=== PATIENT | female | born 1985 | race Caucasian/White ===

== ENCOUNTER 2017-01-07 05:04 | Inpatient (IN) | payer BC, OTHER ==
[2017-01-07] MEDS ORDERED: Butorphanol 1 MG/ML SDV IVPUSH PRN (05:17)
[2017-01-07] MEDS ORDERED: Carboprost Tromethamine 250 MCG/1 ML Amp IM PRN (05:17)
[2017-01-07] MEDS ORDERED: Misoprostol 200 MCG Tab PO PRN (05:17)
[2017-01-07] MEDS ORDERED: Lidocaine 1% 50 ML MDV INJECT PRN (05:17)
[2017-01-07] MEDS ORDERED: Sodium Chloride 0.9% 2.5 ML Syringe FLUSH PRN (05:17)
[2017-01-07] MEDS ORDERED: Sodium Chloride 0.9% 10 ML Syringe FLUSH PRN (05:17)
[2017-01-07] MEDS ORDERED: Nalbuphine 10 MG/1 ML Vial IVPUSH PRN (05:17)
[2017-01-07] MEDS ORDERED: Methylergonovine 0.2 MG/1 ML Amp IM PRN (05:17)
[2017-01-07] MEDS ORDERED: Misoprostol 25 MCG (1/4 of 100 MCG) Tab VAG PRN (05:17)
[2017-01-07] MEDS ORDERED: Terbutaline 1 MG/ML SDV SUBCUT PRN (05:17)
[2017-01-07] MEDS ORDERED: Water For Irrigation,Sterile 1,000 ML Container IRR PRN (05:17)
[2017-01-07] MEDS ORDERED: Misoprostol 25 MCG (1/4 of 100 MCG) Tab VAG SCH (05:30)
[2017-01-07] MEDS ORDERED: Oxytocin/Lactated Ringers 30 UNIT/500 ML BAG IV SCH ×2 (05:30)
[2017-01-07] MEDS: Lactated Ringers 1,000 ML IV SCH ×4 (05:39→11:14)
--- NOTE | 2017-01-07 10:03 | PCM.PREANE ---
Preanesthetic Assessment - Procedure Proposed Procedure: Continuous labor epidural for scheduled elective induction - Anesthesia/Transfusion/Family Hx Anesthesia History: Prior Anesthesia Without Reaction Other Type of Anesthesia Reaction Comment: Denies any known problems/past, My Grandfather required smaller amnts Family History of Anesthesia Reaction: No Transfusion History: No Prior Transfusion(s) - Review of Systems General: No Symptoms Pulmonary: No Symptoms Cardiovascular: No Symptoms Gastrointestinal: No symptoms Neurological: No Symptoms Other: Reports: None - Physical Assessment NPO Status Date: 01/07/17 NPO Status Time: 11:23 (cl liquids) Height: 1.63 m Weight: 63.2 kg ASA Class: 2 Mental Status: Alert & Oriented x3 Airway Class: Mallampati = 2 Dentition: Reports: Normal Dentition Thyro-Mental Finger Breadths: 3 Mouth Opening Finger Breadths: 3 ROM/Head Extension: Full Lungs: Clear to auscultation, Normal respiratory effort Cardiovascular: Regular Rate, Regular Rhythm, Murmurs (has longstanding history of asymptomatic murmur) - Lab Values: Laboratory Last Values WBC 14.36 K/uL (4.0-11.0) H 01/07/17 05:40 RBC 3.68 M/uL (4.30-5.90) L 01/07/17 05:40 Hgb 10.2 g/dL (12.0-16.0) L 01/07/17 05:40 Hct 32.4 % (36.0-46.0) L 01/07/17 05:40 MCV 88.0 fL (80.0-98.0) 01/07/17 05:40 MCH 27.7 pg (27.0-32.0) 01/07/17 05:40 MCHC 31.5 g/dL (31.0-37.0) 01/07/17 05:40 RDW Std Deviation 45.7 fl (28.0-62.0) 01/07/17 05:40 RDW Coeff of Ermias 14 % (11.0-15.0) 01/07/17 05:40 Plt Count 306 K/uL (150-400) 01/07/17 05:40 MPV 10.10 fL (7.40-12.00) 01/07/17 05:40 Nucleated RBC % 0.0 /100WBC 01/07/17 05:40 Nucleated RBCs # 0 K/uL 01/07/17 05:40 Blood Type AB POSITIVE 01/07/17 05:40 Antibody Screen NEGATIVE 01/07/17 05:40 - Allergies Allergies/Adverse Reactions: Allergies Allergy/AdvReac Type Severity Reaction Status Date / Time acetaminophen [From Percocet] Allergy Vomiting Verified 04/13/14 14:32 caffeine Allergy Headache Verified 04/13/14 14:32 hydrocodone bitartrate Allergy Vomiting Verified 04/13/14 14:32 [From Vicodin] latex Allergy Swelling Verified 04/13/14 14:32 oxycodone HCl [From Percocet] Allergy Vomiting Verified 04/13/14 14:32 - Blood Blood Available: Yes Product(s) Available: PRBC - Acknowledgements Anesthesia Type Planned: Epidural Pt an Appropriate Candidate for the Planned Anesthesia: Yes Alternatives and Risks of Anesthesia Discussed w Pt/Guardian: Yes Pt/Guardian Understands and Agrees with Anesthesia Plan: Yes PreAnesthesia Questionnaire Cardiovascular History: Reports: Heart murmur (longstanding asymptomatic history of heart murmur) 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 - SUBSTANCE USE Smoking Status *Q: Former Smoker Tobacco Use Within Last Twelve Months: No Second Hand Smoke Exposure: No Days Per Week of Alcohol Use: 0 Number of Drinks Per Day: 2 Total Drinks Per Week: 0 Recreational Drug Use History: No - HOME MEDS Home Medications: Home Meds . [No Known Home Meds] 03/17/16 [History] - CURRENT (IN HOUSE) MEDS Current Meds: Current Medications Butorphanol Tartrate (Stadol) 1 mg IVPUSH Q1H PRN PRN Reason: Pain Carboprost Tromethamine (Hemabate Ds) 250 mcg IM ASDIRECTED PRN PRN Reason: Post Hemorrhage Lactated Ringer's (Ringers, Lactated) 1,000 mls @ 150 mls/hr IV ASDIRECTED ROMAN Last Admin: 01/07/17 08:49 Dose: 150 mls/hr Oxytocin/Lactated Ringer's (Pitocin In Lr 30 Units/500 Ml) 30 unit in 500 mls @ 2 mls/hr IV TITRATE ROMAN; 2 MUNITS/MIN PRN Reason: Protocol Last Titration: 01/07/17 09:53 Dose: 10 munits/min, 10 mls/hr Lidocaine HCl (Xylocaine 1%) 50 ml INJECT .ONCE PRN PRN Reason: Laceration repair Methylergonovine Maleate (Methergine) 0.2 mg IM ASDIRECTED PRN PRN Reason: Post Hemorrhage Misoprostol (Cytotec) 200 mcg PO .ONCE PRN PRN Reason: Post Hemorrhage Misoprostol (Cytotec) 25 mcg VAG .ONCE ROMAN Misoprostol (Cytotec) 25 mcg VAG Q4H PRN PRN Reason: Cervical Ripening Stop: 01/08/17 09:18 Sodium Chloride (Saline Flush) 10 ml FLUSH ASDIRECTED PRN PRN Reason: Keep Vein Open Sodium Chloride (Saline Flush) 2.5 ml FLUSH ASDIRECTED PRN PRN Reason: Keep Vein Open Sterile Water (Sterile Water For Irrigation) 1,000 ml IRR ASDIRECTED PRN PRN Reason: delivery Terbutaline Sulfate (Brethine) 0.25 mg SUBCUT ASDIRECTED PRN PRN Reason: Tacysystole Discontinued Medications Oxytocin/Lactated Ringer's (Pitocin In Lr 30 Units/500 Ml) 30 unit in 500 mls @ 999 mls/hr IV TITRATE ROMAN; 999 MUNITS/MIN PRN Reason: Protocol Stop: 01/07/17 06:01 Nalbuphine HCl (Nubain) 10 mg IVPUSH Q1H PRN PRN Reason: Pain (severe 7-10) Stop: 01/07/17 07:18 Preanesthetic Assessment - ANESTHESIA/TRANSFUSION/FAMILY HX Anesthesia/Transfusion History: No Prior Transfusion(s), Prior Anesthesia Other Type of Anesthesia Reaction Comment: Denies any known problems/past, My Grandfather required smaller amnts Family History of Anesthesia Reaction: Yes Other Intubation History Comment: No known problems - PHYSICAL ASSESSMENT Height: 1.63 m Weight: 63.2 kg - LAB Values: Laboratory Last Values WBC 14.36 K/uL (4.0-11.0) H 01/07/17 05:40 RBC 3.68 M/uL (4.30-5.90) L 01/07/17 05:40 Hgb 10.2 g/dL (12.0-16.0) L 01/07/17 05:40 Hct 32.4 % (36.0-46.0) L 01/07/17 05:40 MCV 88.0 fL (80.0-98.0) 01/07/17 05:40 MCH 27.7 pg (27.0-32.0) 01/07/17 05:40 MCHC 31.5 g/dL (31.0-37.0) 01/07/17 05:40 RDW Std Deviation 45.7 fl (28.0-62.0) 01/07/17 05:40 RDW Coeff of Ermias 14 % (11.0-15.0) 01/07/17 05:40 Plt Count 306 K/uL (150-400) 01/07/17 05:40 MPV 10.10 fL (7.40-12.00) 01/07/17 05:40 Nucleated RBC % 0.0 /100WBC 01/07/17 05:40 Nucleated RBCs # 0 K/uL 01/07/17 05:40 Blood Type AB POSITIVE 01/07/17 05:40 Antibody Screen NEGATIVE 01/07/17 05:40 - ALLERGIES Allergies/Adverse Reactions: Allergies Allergy/AdvReac Type Severity Reaction Status Date / Time acetaminophen [From Percocet] Allergy Vomiting Verified 04/13/14 14:32 caffeine Allergy Headache Verified 04/13/14 14:32 hydrocodone bitartrate Allergy Vomiting Verified 04/13/14 14:32 [From Vicodin] latex Allergy Swelling Verified 04/13/14 14:32 oxycodone HCl [From Percocet] Allergy Vomiting Verified 04/13/14 14:32 - Free Text/Narrative Note: Labor Analgesia/Epidural Procedure start date: 01/07/17 time: 1040 Attending provider aware Chart reviewed Permit signed Labs reviewed VS/FHR reviewed Pt identified/ID band Pt assessed Risks/Benefits discussed and accepted Monitors in place (BP, HR, SPO2) Patient, Site, Procedure Verification, Pause. Pain "8/10" Fluid bolus infused (fluid type and amount): 1200 ml LR Position: Sitting @ 1044 Prep: Betadine X 3 Sterile Drape Intradermal Wheal: 3 ml 1% Lidocaine Regional placement level: L3-4 Needle: 17 g Tuohy Approach: Midline Technique: LISA glass syringe 3 ml Sterile water LISA needle depth: 4 cm Paresthesia: None Fluid Obtained: None Catheter insertion time: 1053 Catheter depth at skin: 20 cm Test Dose Time: 1054 RX: 3 ml 1.5% lidocaine with 1:200,000 epi Response: Negative Loading dose Time: 3617-1906 RX: 100 mcg fentanyl followed by 7 ml 0.2% ropivacaine over 13 minutes Pt position: semi fowlers with ISADORA Continuous infusion Start Time: 111 RX: 100 ml 0.2% ropivacaine with 200 mcg fentanyl added [2mcg/ml] Continuous infusion rate: 8 ml COMMUNITY ORGANIZATION DIRECTOR bolus option: 5 ml q 15 minutes Lockout dose per hour: 30 ml/hr Pt response Post procedure pain level: "0/10" VS and FHR monitored in unit post placement (See OB traceview for documentation. ) Procedure end date: 01/07/17 time: 1133
[2017-01-07] MEDS ORDERED: Ropivacaine 0.2% 2 MG/ML 20 ML SDV ONE (10:37)
[2017-01-07] MEDS ORDERED: Ropivacaine HCl/PF 100 ML ONE (10:37)
[2017-01-07] MEDS ORDERED: fentaNYL 100 MCG/2 ML SDV ONE (10:37)
[2017-01-07] MEDS ORDERED: Benzocaine/Menthol 20%-0.5% Spray 78 GM Cannister TOP PRN (13:42)
[2017-01-07] MEDS ORDERED: Docusate Sodium 100 MG Cap PO PRN (13:42)
[2017-01-07] MEDS ORDERED: Bisacodyl 10 MG Supp RECTAL PRN (13:42)
[2017-01-07] MEDS ORDERED: Lanolin 100% Cream 7 GM Tube TOP PRN (13:42)
[2017-01-07] MEDS ORDERED: Witch Hazel Medicated Pads 40/Jar TOP PRN (13:42)
[2017-01-07] MEDS: Ibuprofen 800 MG Tab PO PRN (19:27)
--- NOTE | 2017-01-07 22:12 | OR ---
SURGEON: Elizabeth Childress DATE OF PROCEDURE: 01/07/2017 BRIEF PRE-DELIVERY HISTORY: This is a 31-year-old, G6, P3 who presented to Labor and Delivery for elective induction of labor. The patient had a category 1 tracing on admission. The patient was started on IV Pitocin. Once patient had regular uterine contractions, patient underwent amniotomy at 4 cm and quickly got uncomfortable and received her epidural. The patient eventually progressed to complete dilation. Patient shortly thereafter started maternal expulsive efforts. PREOPERATIVE DIAGNOSES: 1. Intrauterine at 39 weeks and 1 day. 2. GBS negative. 3. Elective induction of labor. POSTOPERATIVE DIAGNOSES: 1. Intrauterine at 39 weeks and 1 day. 2. GBS negative. 3. Elective induction of labor. 4. Delivered status. 5. First-degree perineal laceration. PROCEDURE PERFORMED: 1. Spontaneous-assisted vaginal delivery. 2. Repair of first-degree perineal laceration. ANESTHESIA: Epidural. ESTIMATED BLOOD LOSS: 75 mL. FINDINGS: Viable male infant in vertex presentation with score of 5 and 9 at 1 and 5 minutes respectively and weight of 3600 g. Nuchal x1, delivered through, nuchal was tight. Normal intact placenta with 3-vessel cord. First-degree perineal laceration. SPECIMEN REMOVED: Placenta. CONDITION: Postoperatively, the patient and tolerated the procedure well. COMPLICATIONS: None known. DESCRIPTION OF PROCEDURE: This female, under epidural anesthesia delivered a viable male infant with score of 5 and 9 at 1 and 5 minutes respectively and weight of 3600 g. Delivery was via spontaneous assisted vaginal delivery with in vertex presentation. Upon delivery of vertex, vertex rested to the right occiput transverse with gentle downward traction, the anterior shoulder did not spontaneously deliver, so maternal head was reclined even more and with slightly more traction and reposition of the shoulders, the anterior shoulder delivered followed by the body. There was a nuchal cord that was not able to be reduced, but was delivered through. The infant was placed on mom's abdomen at request, but eventually went over to the warmer second to difficulty getting the first cry out. Cord was doubly clamped and cut and cord blood was collected and sent for analysis. After getting over to the warmer, had excellent tone and a spontaneous cry. After delivery of the infant, IV Pitocin was given as uterotonic to prevent excessive maternal blood loss and to help expel the placenta. With signs of placental separation, fundal massage and traction on the umbilical cord was given to deliver a normal intact placenta with 3-vessel cord. After delivery of infant and placenta, the vagina, perineum, and rectum were explored and patient had a midline first-degree perineal laceration that was repaired with 3-0 Vicryl suture in interrupted fashion. Afterwards the lower uterine segment and vagina was cleared of all clots and debris. The patient was cleansed, pads were changed and bed was returned to functioning status. The patient and tolerated the procedure well. Sponge, lap, needle, instrument counts were correct. NEWTYOL / MODL /[id number]
[2017-01-08 07:53] VITALS: BP 100/52
[2017-01-08] MEDS: Ibuprofen 800 MG Tab PO PRN (07:57)
--- NOTE | 2017-01-08 08:10 | PCM.PNPP ---
- General Info Date of Service: 01/08/17 Functional Status: Reports: pain controlled, tolerating diet, ambulating, urinating - Review of Systems General: Reports: No Symptoms HEENT: Reports: no symptoms Pulmonary: Reports: no symptoms Cardiovascular: Reports: No Symptoms Gastrointestinal: Reports: No symptoms Genitourinary: Reports: no symptoms Musculoskeletal: Reports: no symptoms Skin: Reports: no symptoms Neurological: Reports: No Symptoms Psychiatric: Reports: no symptoms - General Info Date of Service: 01/08/17 - Patient Data Vital Signs - most recent: Last Vital Signs Temp 36.0 C 01/08/17 07:51 Pulse 60 01/08/17 07:51 Resp 12 01/08/17 07:51 BP 100/52 L 01/08/17 07:51 Pulse Ox 97 01/08/17 07:51 Weight - most recent: 63.2 kg Lab Results - last 24 hrs: Laboratory Results - last 24 hr 01/08/17 Range/Units 04:39 Hgb 9.6 L (12.0-16.0) g/dL Hct 31.0 L (36.0-46.0) % Med Orders - Current: Current Medications Benzocaine/Menthol (Dermoplast Pain Relief 20%-0.5% [place]) 78 gm TOP ASDIRECTED PRN PRN Reason: Perineal Comfort Measure Last Admin: 01/07/17 15:11 Dose: 1 can Bisacodyl (Dulcolax) 10 mg RECTAL .ONCE PRN PRN Reason: Constipation Butorphanol Tartrate (Stadol) 1 mg IVPUSH Q1H PRN PRN Reason: Pain Carboprost Tromethamine (Hemabate Ds) 250 mcg IM ASDIRECTED PRN PRN Reason: Post Hemorrhage Docusate Sodium (Colace) 100 mg PO BID PRN PRN Reason: Constipation Emollient Ointment (Lansinoh Hpa) 0 gm TOP ASDIRECTED PRN PRN Reason: Sore Nipples Last Admin: 01/07/17 15:12 Dose: 1 tube Lactated Ringer's (Ringers, Lactated) 1,000 mls @ 150 mls/hr IV ASDIRECTED ROMAN Last Admin: 01/07/17 11:14 Dose: 150 mls/hr Oxytocin/Lactated Ringer's (Pitocin In Lr 30 Units/500 Ml) 30 unit in 500 mls @ 2 mls/hr IV TITRATE ROMNA; 2 MUNITS/MIN PRN Reason: Protocol Last Titration: 01/07/17 13:25 Dose: 0 munits/min, 0 mls/hr Ibuprofen (Motrin) 800 mg PO Q6H PRN PRN Reason: Pain Last Admin: 01/08/17 07:57 Dose: 800 mg Lidocaine HCl (Xylocaine 1%) 50 ml INJECT .ONCE PRN PRN Reason: Laceration repair Methylergonovine Maleate (Methergine) 0.2 mg IM ASDIRECTED PRN PRN Reason: Post Hemorrhage Misoprostol (Cytotec) 200 mcg PO .ONCE PRN PRN Reason: Post Hemorrhage Misoprostol (Cytotec) 25 mcg VAG .ONCE ROMAN Misoprostol (Cytotec) 25 mcg VAG Q4H PRN PRN Reason: Cervical Ripening Stop: 01/08/17 09:18 Sodium Chloride (Saline Flush) 10 ml FLUSH ASDIRECTED PRN PRN Reason: Keep Vein Open Sodium Chloride (Saline Flush) 2.5 ml FLUSH ASDIRECTED PRN PRN Reason: Keep Vein Open Sterile Water (Sterile Water For Irrigation) 1,000 ml IRR ASDIRECTED PRN PRN Reason: delivery Last Admin: 01/07/17 13:44 Dose: 1,000 ml Terbutaline Sulfate (Brethine) 0.25 mg SUBCUT ASDIRECTED PRN PRN Reason: Tacysystole Witch Eunice (Tucks) 1 pad TOP ASDIRECTED PRN PRN Reason: comfort care Last Admin: 01/07/17 15:11 Dose: 1 tub Discontinued Medications Fentanyl (Sublimaze) Confirm Administered Dose 300 mcg .ROUTE .STK-MED ONE Stop: 01/07/17 10:38 Oxytocin/Lactated Ringer's (Pitocin In Lr 30 Units/500 Ml) 30 unit in 500 mls @ 999 mls/hr IV TITRATE ROMAN; 999 MUNITS/MIN PRN Reason: Protocol Stop: 01/07/17 06:01 Last Admin: 01/07/17 13:25 Dose: 999 munits/min, 999 mls/hr Ropivacaine (Naropin 0.2%) Confirm Administered Dose 100 mls @ as directed .ROUTE .STK-MED ONE Stop: 01/07/17 10:38 Nalbuphine HCl (Nubain) 10 mg IVPUSH Q1H PRN PRN Reason: Pain (severe 7-10) Stop: 01/07/17 07:18 Ropivacaine (Naropin 0.2%) Confirm Administered Dose 20 ml .ROUTE .STK-MED ONE Stop: 01/07/17 10:38 - Interaction Disposition, : in Room with Family Infant Interaction: Unable to Hold Infant at this Time Feeding: Breastfed Infant; Nursed Well Support Person: - Recovery Exam Fundal Tone: Firm Fundal Level: At Umbilicus Fundal Placement: Midline Lochia Amount: Scant Lochia Color: Rubra/Red Perineum Description: Intact, Minimal Bruising/Swelling Episiotomy/Laceration: Approximated Bladder Status: Voiding Urinary Elimination: Voided - Exam General: alert, oriented Neck: supple Lungs: Clear to auscultation, Normal respiratory effort Cardiovascular: Regular Rate, Regular Rhythm Abdomen: bowel sounds present, soft Extremities: no calf tenderness Skin: warm, dry, intact Neurological: no new focal deficit Psy/Mental Status: alert, normal affect, normal mood - Problem List & Annotations (1) Vaginal delivery SNOMED Code(s): 363336279 Code(s): O80 - ENCOUNTER FOR FULL-TERM UNCOMPLICATED DELIVERY Status: Acute Current Visit: Yes - Problem List Review Problem List Initiated/Reviewed/Updated: Yes - My Orders Last 24 Hours: My Active Orders 01/07/17 13:42 Patient Status [ADT] Routine May Shower [RC] ASDIRECTED Up ad Elaine [RC] ASDIRECTED Benzocaine/Menthol [Dermoplast Pain Relief 20%-0.5% [place]] 78 gm TOP ASDIRECTED PRN Bisacodyl [Dulcolax] 10 mg RECTAL .ONCE PRN Docusate Sodium [Colace] 100 mg PO BID PRN Ibuprofen [Motrin] 800 mg PO Q6H PRN Lanolin [Lansinoh HPA] See Dose Instructions TOP ASDIRECTED PRN Witch Eunice [Tucks] 1 pad TOP ASDIRECTED PRN Assess Lochia [WOMSER] Per Unit Routine Assess Uterine Involution [WOMSER] Per Unit Routine Breast Pump [WOMSER] Per Unit Routine Peripheral IV Discontinue [OM.PC] Routine 01/07/17 13:43 Ice Therapy [OM.PC] Per Unit Routine Perineal Care [OM.PC] Per Unit Routine Sitz Bath [OM.PC] Per Unit Routine 01/07/17 Dinner Regular Diet [DIET] - Assessment Assessment:: PPD#1 S/p SAVD Doing well Desires discharge home today - Plan Plan:: Discharge home today at pts request Pelvic rest for 6wks Infection precautions given Bleeding precautions given Thrombotic precautions given Post blues/depression precautions given
== END 2017-01-08 16:00 | disposition home or self-care (01) | DRG 775 ==
LOC: MW.OBCHECK 05:04 → MW.OB 05:17 → OBSVTOIN 13:24 → MW.OB 13:24
PROVIDERS: ADMIT Obstetrics & Gynecology; ATTEND Obstetrics & Gynecology
PROC: 10E0XZZ Delivery of Products of Conception, External Approach (ICD-10-PCS; principal; 2017-01-07)
PROC: 0HQ9XZZ Repair Perineum Skin, External Approach (ICD-10-PCS; 2017-01-07)
PROC: 3E033VJ Introduction of Other Hormone into Peripheral Vein, Percutaneous Approach (ICD-10-PCS; 2017-01-07)
DX: O70.0 First degree perineal laceration during delivery (principal); Z3A.39 39 weeks gestation of pregnancy; Z37.0 Single live birth
CPT/HCPCS: 01967; 36415; 85014; 85018; 85027; 86850; 86900; 86901; A9270-GY; J2795; J3010; J7120

== ENCOUNTER 2019-09-18 23:22 | Inpatient (IN) | payer OTHER ==
[2019-09-18] MEDS ORDERED: Misoprostol 200 MCG Tab PO PRN (23:26)
[2019-09-18] MEDS ORDERED: Water For Irrigation,Sterile 1,000 ML Container IRR PRN (23:26)
[2019-09-18] MEDS ORDERED: Lidocaine 1% 50 ML MDV INJECT PRN (23:26)
[2019-09-18] MEDS ORDERED: Sodium Chloride 0.9% 10 ML SDV IV PRN (23:26)
[2019-09-18] MEDS ORDERED: Sodium Chloride 0.9% 10 ML Syringe FLUSH PRN (23:26)
[2019-09-18] MEDS ORDERED: Sodium Chloride 0.9% 2.5 ML Syringe FLUSH PRN (23:26)
[2019-09-18] MEDS ORDERED: Tranexamic Acid 1,000 MG in Sodium Chloride 0.9% 100 ML IV PRN (23:26)
[2019-09-18] MEDS ORDERED: Terbutaline 1 MG/ML SDV SUBCUT PRN (23:26)
[2019-09-18] MEDS ORDERED: Butorphanol 1 MG/ML SDV IVPUSH PRN (23:26)
[2019-09-18] MEDS ORDERED: Ampicillin 2 GM in Sodium Chloride 0.9% 100 ML IV ONE (23:26)
[2019-09-18] MEDS ORDERED: Methylergonovine 0.2 MG/1 ML Amp IM PRN (23:26)
[2019-09-18] MEDS ORDERED: Ondansetron 4 MG/2 ML SDV IVPUSH PRN (23:26)
[2019-09-18] MEDS ORDERED: Misoprostol 25 MCG (1/4 of 100 MCG) Tab VAG PRN ×2 (23:26)
[2019-09-18] MEDS ORDERED: Carboprost Tromethamine 250 MCG/1 ML Amp IM PRN (23:26)
[2019-09-18] MEDS ORDERED: Nalbuphine 10 MG/1 ML Vial IVPUSH PRN (23:26)
[2019-09-18] MEDS ORDERED: Oxytocin/0.9 % Sodium Chloride 30 UNIT/500 ML BAG IV SCH ×2 (23:30)
[2019-09-19] MEDS: Lactated Ringers 1,000 ML IV SCH ×3 (00:30→07:43)
[2019-09-19] MEDS ORDERED: fentaNYL 100 MCG/2 ML SDV ONE (03:10)
[2019-09-19] MEDS ORDERED: Ropivacaine HCl/PF 100 ML ONE (03:10)
--- NOTE | 2019-09-19 03:29 | PCM.PREANE ---
Preanesthetic Assessment - Anesthesia/Transfusion/Family Hx Anesthesia History: Prior Anesthesia Without Reaction Other Type of Anesthesia Reaction Comment: Denies any known problems/past, My Grandfather required smaller amnts Family History of Anesthesia Reaction: No Transfusion History: No Prior Transfusion(s) - Physical Assessment NPO Status Date: 09/18/19 NPO Status Time: 22:00 Height: 1.63 m Weight: 73.936 kg ASA Class: 1 - Lab Values: Laboratory Last Values WBC 12.69 K/uL (4.0-11.0) H 09/18/19 23:50 RBC 3.86 M/uL (4.30-5.90) L 09/18/19 23:50 Hgb 12.3 g/dL (12.0-16.0) 09/18/19 23:50 Hct 37.1 % (36.0-46.0) 09/18/19 23:50 MCV 96.1 fL (80.0-98.0) 09/18/19 23:50 MCH 31.9 pg (27.0-32.0) 09/18/19 23:50 MCHC 33.2 g/dL (31.0-37.0) 09/18/19 23:50 RDW Std Deviation 50.0 fl (28.0-62.0) 09/18/19 23:50 RDW Coeff of Ermias 14 % (11.0-15.0) 09/18/19 23:50 Plt Count 223 K/uL (150-400) 09/18/19 23:50 MPV 10.60 fL (7.40-12.00) 09/18/19 23:50 Nucleated RBC % 0.0 /100WBC 09/18/19 23:50 Nucleated RBCs # 0 K/uL 09/18/19 23:50 Blood Type AB POSITIVE 09/18/19 23:50 Antibody Screen NEGATIVE 09/18/19 23:50 - Allergies Allergies/Adverse Reactions: Allergies Allergy/AdvReac Type Severity Reaction Status Date / Time caffeine Allergy Headache Verified 10/31/18 13:01 acetaminophen [From Percocet] AdvReac Vomiting Verified 10/31/18 13:01 hydrocodone bitartrate AdvReac Vomiting Verified 10/31/18 13:01 [From Vicodin] oxycodone HCl [From Percocet] AdvReac Vomiting Verified 10/31/18 13:01 - Acknowledgements Anesthesia Type Planned: Epidural Pt an Appropriate Candidate for the Planned Anesthesia: Yes Alternatives and Risks of Anesthesia Discussed w Pt/Guardian: Yes Pt/Guardian Understands and Agrees with Anesthesia Plan: Yes PreAnesthesia Questionnaire HEENT History: Reports: None Cardiovascular History: Reports: Heart Murmur Respiratory History: Reports: None Gastrointestinal History: Reports: None Genitourinary History: Reports: None LIFTER History: Reports: , Spontaneous Other OB/BYN History: Episiotomy reconstruction; Laparoscopy-removal of ovarian cyst; D&C Musculoskeletal History: Reports: None Neurological History: Reports: None 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 - SUBSTANCE USE Smoking Status *Q: Former Smoker Tobacco Use Within Last Twelve Months: No Second Hand Smoke Exposure: No Recreational Drug Use History: No - HOME MEDS Home Medications: Home Meds . [No Known Home Meds] 03/17/16 [History] - CURRENT (IN HOUSE) MEDS Current Meds: Current Medications Butorphanol Tartrate (Stadol) 1 mg IVPUSH Q1H PRN PRN Reason: Pain Carboprost Tromethamine (Hemabate Ds) 250 mcg IM ASDIRECTED PRN PRN Reason: Post Hemorrhage Lactated Ringer's (Ringers, Lactated) 1,000 mls @ 150 mls/hr IV ASDIRECTED ROMAN Last Admin: 09/19/19 03:25 Dose: 999 mls/hr Oxytocin/Sodium Chloride (Oxytocin 30 Unit/500 Ml-Ns) 30 unit in 500 mls @ 500 mls/hr IV TITRATE ROMAN Oxytocin/Sodium Chloride (Oxytocin 30 Unit/500 Ml-Ns) 30 unit in 500 mls @ 2 mls/hr IV TITRATE ROMAN; Protocol Last Titration: 09/19/19 02:15 Dose: 6 munits/min, 6 mls/hr Tranexamic Acid 1,000 mg/ (Sodium Chloride) 110 mls @ 660 mls/hr IV ONETIME PRN PRN Reason: Bleeding Ampicillin Sodium 1 gm/ Sodium (Chloride) 50 mls @ 100 mls/hr IV Q4H ROMAN Lidocaine HCl (Xylocaine 1%) 50 ml INJECT ONETIME PRN PRN Reason: Laceration repair Methylergonovine Maleate (Methergine) 0.2 mg IM ASDIRECTED PRN PRN Reason: Post Hemorrhage Misoprostol (Cytotec) 200 mcg PO ONETIME PRN PRN Reason: Post Hemorrhage Misoprostol (Cytotec) 25 mcg VAG ONETIME PRN PRN Reason: Cervical Ripening Misoprostol (Cytotec) 25 mcg VAG Q4H PRN PRN Reason: Cervical Ripening Nalbuphine HCl (Nubain) 10 mg IVPUSH Q1H PRN PRN Reason: Pain (severe 7-10) Ondansetron HCl (Zofran) 4 mg IVPUSH Q6H PRN PRN Reason: Nausea/Vomiting Sodium Chloride (Saline Flush) 10 ml FLUSH ASDIRECTED PRN PRN Reason: Keep Vein Open Sodium Chloride (Saline Flush) 2.5 ml FLUSH ASDIRECTED PRN PRN Reason: Keep Vein Open Sodium Chloride (Normal Saline) 10 ml IV ASDIRECTED PRN PRN Reason: IV Use Sterile Water (Sterile Water For Irrigation) 1,000 ml IRR ASDIRECTED PRN PRN Reason: delivery Terbutaline Sulfate (Brethine) 0.25 mg SUBCUT ASDIRECTED PRN PRN Reason: Tacysystole Discontinued Medications Fentanyl (Sublimaze) Confirm Administered Dose 100 mcg .ROUTE .STK-MED ONE Stop: 09/19/19 03:11 Ampicillin Sodium 2 gm/ Sodium (Chloride) 100 mls @ 200 mls/hr IV ONETIME ONE Stop: 09/18/19 23:55 Last Infusion: 09/19/19 01:00 Dose: Infused Ropivacaine (Naropin 0.2%) Confirm Administered Dose 100 mls @ as directed .ROUTE .STK-MED ONE Stop: 09/19/19 03:11
--- NOTE | 2019-09-19 03:33 | PCM.PRNOTE ---
- Free Text/Narrative Note: Anes Note Patietn requests epidural for L&D. Sitting position. Level L2-L3 midline approach. Sterile technique. Chloraprep scrub to lumbar area. Sterile fenestrated drape applied. Epidural space easily achieved single attempt with ease using LISA technique. LISA at 3 cm. Cath threaded 5 cm with ease. Secured at skin at 8 cm using sterile clear adhesive dressing. 0312 test 3 cc 1.5% lido with epi negative. 0315 load 10 cc 0.2% ropiviciane with 1 mcg cc fentayl in slow divided doses. 0320 Pump started with 90 cc same solution at 8cc hr with 6 cc q 20 min prn bolus. Aneudy Well Time with patient [id number] Duncan Le CLEAN ROOM OPERATOR
[2019-09-19] MEDS: Ampicillin 1 GM in Sodium Chloride 0.9% 50 ML IV SCH ×2 (04:43→09:05)
--- NOTE | 2019-09-19 07:58 | PCM.PRNOTE ---
- Free Text/Narrative Note: Anes Note I was called to asses this patietn. Blood pressure is less than 80 mm systolic. However, the patietn reports that 90s systolic is normal for her. I ordered a 1000 cc fluid bolus, and also gave 100 mcg neosynephrine. BP is now 95 systolic. Epidural pump rate was decreased to 6 cc hr. CLOTHING SUPERVISOR is here, and patietn is complete. Time with patient [id number] Duncan Le STEAM FLATTENER
[2019-09-19] MEDS ORDERED: Witch Hazel Medicated Pads 40/Jar TOP PRN (08:36)
[2019-09-19] MEDS ORDERED: Benzocaine/Menthol 20%-0.5% Spray 78 GM Cannister TOP PRN (08:36)
[2019-09-19] MEDS ORDERED: Bisacodyl 10 MG Supp RECTAL PRN (08:36)
[2019-09-19] MEDS ORDERED: Lanolin 100% Cream 7 GM Tube TOP PRN (08:36)
[2019-09-19] MEDS ORDERED: Docusate Sodium 100 MG Cap PO PRN (08:36)
[2019-09-19] MEDS ORDERED: Ibuprofen 400 MG Tab PO PRN (08:36)
[2019-09-19] MEDS ORDERED: Acetaminophen 500 MG Tab PO PRN ×2 (08:36)
--- NOTE | 2019-09-19 08:44 | PCM.DEL ---
L & D Note - General Info Date of Service: 09/19/19 Mother's Due Date: 09/25/19 - Delivery Note Labor: Augmented by Oxytocin Cervical Ripening Method: Oxytocin Delivery Outcome: Livebirth Presentation: Left Occiput Anterior (BAKARI) Nuchal Cord: Present Anesthesia Type: Epidural Episiotomy Type: None Laceration: None Estimated Blood Loss: 100 Resuscitation Needed: No Score 1 min: 8 Score 5 min: 9 Delivery Comments (Free Text/Narrative):: Live male delivered at 811am 8/9 , weight 3900 - General Info Date of Service: 09/19/19 - Patient Data Weight - Most Recent: 73.936 kg Lab Results Last 24 Hours: Laboratory Results - last 24 hr 09/18/19 09/18/19 Range/Units 23:50 23:50 WBC 12.69 H (4.0-11.0) K/uL RBC 3.86 L (4.30-5.90) M/uL Hgb 12.3 (12.0-16.0) g/dL Hct 37.1 (36.0-46.0) % MCV 96.1 (80.0-98.0) fL MCH 31.9 (27.0-32.0) pg MCHC 33.2 (31.0-37.0) g/dL RDW Std Deviation 50.0 (28.0-62.0) fl RDW Coeff of Ermias 14 (11.0-15.0) % Plt Count 223 (150-400) K/uL MPV 10.60 (7.40-12.00) fL Nucleated RBC % 0.0 /100WBC Nucleated RBCs # 0 K/uL Blood Type AB POSITIVE Antibody Screen NEGATIVE Med Orders - Current: Current Medications Acetaminophen (Tylenol Extra Strength) 500 mg PO Q4H PRN PRN Reason: Pain Acetaminophen (Tylenol Extra Strength) 1,000 mg PO Q4H PRN PRN Reason: Pain Benzocaine/Menthol (Dermoplast Pain Relief 20%-0.5% [place]) 78 gm TOP ASDIRECTED PRN PRN Reason: Perineal Comfort Measure Bisacodyl (Dulcolax) 10 mg RECTAL ONETIME PRN PRN Reason: Constipation Butorphanol Tartrate (Stadol) 1 mg IVPUSH Q1H PRN PRN Reason: Pain Carboprost Tromethamine (Hemabate Ds) 250 mcg IM ASDIRECTED PRN PRN Reason: Post Hemorrhage Docusate Sodium (Colace) 100 mg PO BID PRN PRN Reason: Constipation Emollient Ointment (Lansinoh Hpa) 0 gm TOP ASDIRECTED PRN PRN Reason: Sore Nipples Lactated Ringer's (Ringers, Lactated) 1,000 mls @ 150 mls/hr IV ASDIRECTED ROMAN Last Admin: 09/19/19 07:43 Dose: 999 mls/hr Oxytocin/Sodium Chloride (Oxytocin 30 Unit/500 Ml-Ns) 30 unit in 500 mls @ 500 mls/hr IV TITRATE ROMAN Oxytocin/Sodium Chloride (Oxytocin 30 Unit/500 Ml-Ns) 30 unit in 500 mls @ 2 mls/hr IV TITRATE ROMAN; Protocol Last Titration: 09/19/19 04:15 Dose: 12 munits/min, 12 mls/hr Tranexamic Acid 1,000 mg/ (Sodium Chloride) 110 mls @ 660 mls/hr IV ONETIME PRN PRN Reason: Bleeding Ibuprofen (Motrin) 400 mg PO Q4H PRN PRN Reason: Pain Ibuprofen (Motrin) 800 mg PO Q6H PRN PRN Reason: Pain Lidocaine HCl (Xylocaine 1%) 50 ml INJECT ONETIME PRN PRN Reason: Laceration repair Methylergonovine Maleate (Methergine) 0.2 mg IM ASDIRECTED PRN PRN Reason: Post Hemorrhage Misoprostol (Cytotec) 200 mcg PO ONETIME PRN PRN Reason: Post Hemorrhage Misoprostol (Cytotec) 25 mcg VAG ONETIME PRN PRN Reason: Cervical Ripening Misoprostol (Cytotec) 25 mcg VAG Q4H PRN PRN Reason: Cervical Ripening Nalbuphine HCl (Nubain) 10 mg IVPUSH Q1H PRN PRN Reason: Pain (severe 7-10) Ondansetron HCl (Zofran) 4 mg IVPUSH Q6H PRN PRN Reason: Nausea/Vomiting Sodium Chloride (Saline Flush) 10 ml FLUSH ASDIRECTED PRN PRN Reason: Keep Vein Open Sodium Chloride (Saline Flush) 2.5 ml FLUSH ASDIRECTED PRN PRN Reason: Keep Vein Open Sodium Chloride (Normal Saline) 10 ml IV ASDIRECTED PRN PRN Reason: IV Use Sterile Water (Sterile Water For Irrigation) 1,000 ml IRR ASDIRECTED PRN PRN Reason: delivery Last Admin: 09/19/19 08:02 Dose: 1,000 ml Terbutaline Sulfate (Brethine) 0.25 mg SUBCUT ASDIRECTED PRN PRN Reason: Tacysystole Witch Eunice (Tucks) 1 pad TOP ASDIRECTED PRN PRN Reason: comfort care Discontinued Medications Fentanyl (Sublimaze) Confirm Administered Dose 100 mcg .ROUTE .STK-MED ONE Stop: 09/19/19 03:11 Last Admin: 09/19/19 07:40 Dose: Not Given Ampicillin Sodium 2 gm/ Sodium (Chloride) 100 mls @ 200 mls/hr IV ONETIME ONE Stop: 09/18/19 23:55 Last Infusion: 09/19/19 01:00 Dose: Infused Ampicillin Sodium 1 gm/ Sodium (Chloride) 50 mls @ 100 mls/hr IV Q4H ROMAN Last Admin: 09/19/19 04:43 Dose: 100 mls/hr Ropivacaine (Naropin 0.2%) Confirm Administered Dose 100 mls @ as directed .ROUTE .STK-MED ONE Stop: 09/19/19 03:11 Last Admin: 09/19/19 07:39 Dose: Not Given - Problem List & Annotations (1) Vaginal delivery SNOMED Code(s): 051139282 Code(s): O80 - ENCOUNTER FOR FULL-TERM UNCOMPLICATED DELIVERY Status: Acute Current Visit: No - Problem List Review Problem List Initiated/Reviewed/Updated: Yes - My Orders Last 24 Hours: My Active Orders 09/18/19 23:26 Patient Status [ADT] Routine Bedrest Bathroom Privileges [RC] ASDIRECTED Communication Order [RC] ASDIRECTED May Shower [RC] ASDIRECTED Notify Provider [RC] PRN Notify Provider [RC] PRN Notify Provider [RC] STAT Oxygen Therapy [RC] ASDIRECTED Up ad Elaine [RC] ASDIRECTED Vital Signs [RC] PER UNIT ROUTINE Vital Signs [RC] PER UNIT ROUTINE Butorphanol [Stadol] 1 mg IVPUSH Q1H PRN Carboprost Tromethamine [Hemabate DS] 250 mcg IM ASDIRECTED PRN Lidocaine 1% [Xylocaine 1%] 50 ml INJECT ONETIME PRN Methylergonovine [Methergine] 0.2 mg IM ASDIRECTED PRN Nalbuphine [Nubain] 10 mg IVPUSH Q1H PRN Ondansetron [Zofran] 4 mg IVPUSH Q6H PRN Sodium Chloride 0.9% [Normal Saline] 10 ml IV ASDIRECTED PRN Sodium Chloride 0.9% [Saline Flush] 10 ml FLUSH ASDIRECTED PRN Sodium Chloride 0.9% [Saline Flush] 2.5 ml FLUSH ASDIRECTED PRN Terbutaline [Brethine] 0.25 mg SUBCUT ASDIRECTED PRN Tranexamic Acid [Cyklokapron] 1,000 mg Sodium Chloride 0.9% [Normal Saline] 100 ml IV ONETIME Water For Irrigation,Sterile [Sterile Water for Irrigation] 1,000 ml IRR ASDIRECTED PRN miSOPROStoL [Cytotec] 200 mcg PO ONETIME PRN miSOPROStoL [Cytotec] 25 mcg VAG ONETIME PRN miSOPROStoL [Cytotec] 25 mcg VAG Q4H PRN Peripheral IV Insertion Adult [OM.PC] Routine 09/18/19 23:30 Lactated Ringers [Ringers, Lactated] 1,000 ml IV ASDIRECTED Oxytocin/0.9 % Sodium Chloride [Oxytocin 30 Unit/500 ML-NS] 30 unit in 500 ml IV TITRATE Oxytocin/0.9 % Sodium Chloride [Oxytocin 30 Unit/500 ML-NS] 30 unit in 500 ml IV TITRATE Medication Administration Instruction [OM.PC] Q3H 09/18/19 23:50 RAPID PLASMA REAGIN, QUANT [REF] Routine 09/19/19 08:36 Acetaminophen [Tylenol Extra Strength] 1,000 mg PO Q4H PRN Acetaminophen [Tylenol Extra Strength] 500 mg PO Q4H PRN Benzocaine/Menthol [Dermoplast Pain Relief 20%-0.5% [place]] 78 gm TOP ASDIRECTED PRN Bisacodyl [Dulcolax] 10 mg RECTAL ONETIME PRN Docusate Sodium [Colace] 100 mg PO BID PRN Ibuprofen [Motrin] 400 mg PO Q4H PRN Ibuprofen [Motrin] 800 mg PO Q6H PRN Lanolin [Lansinoh HPA] See Dose Instructions TOP ASDIRECTED PRN Witch Eunice [Tucks] 1 pad TOP ASDIRECTED PRN Resuscitation Status Routine 09/19/19 08:37 Patient Status [ADT] Routine May Shower [RC] ASDIRECTED Up ad Elaine [RC] ASDIRECTED Vital Signs [RC] PER UNIT ROUTINE Assess Lochia [WOMSER] Per Unit Routine Assess Uterine Involution [WOMSER] Per Unit Routine Peripheral IV Discontinue [OM.PC] Routine 09/20/19 05:11 HEMOGLOBIN/HEMATOCRIT,HH [HEME] Timed
--- NOTE | 2019-09-19 13:18 | OR ---
SURGEON: BRITTNI MIDDLETON DATE OF PROCEDURE: 09/19/2019 PREOPERATIVE DIAGNOSIS: This is a 34-year-old, 8, para 4-0-3-4 at 39 weeks 1 day for elective induction of labor. POSTOPERATIVE DIAGNOSIS: This is a 34-year-old, 8, para 4-0-3-4 at 39 weeks 1 day for elective induction of labor. PROCEDURE: Normal spontaneous vaginal delivery. ESTIMATED BLOOD LOSS: 100. ANESTHESIA: Epidural. DATE OF DELIVERY: 09/19/2019. NOTES AND FINDINGS: A live male , delivered at 8:11 a.m. score of 8 and 9. Weight 3900g. BRIEF HISTORY: She is a 34-year-old, G8, P4-0-3-4 at 39 weeks 1 day, who was desiring elective induction of labor. The care was complicated by echogenic bowel, which resolved. She was GBS positive. She desired induction of labor. With induction of labor, she was 3 cm dilated. She received Pitocin after which she was AROM'ed. Clear fluid was noted. She received GBS prophylaxis also. The patient being fully dilated she was encouraged to push. PROCEDURE IN DETAIL: With good pushing effort, she delivered the head, subsequently by the anterior and posterior shoulder. The body of the was delivered,infant was placed on the maternal abdomen. Delayed cord clamping was observed. The cord was clamped and cut. The placenta was delivered via controlled cord traction. The perineum was inspected and noted to be intact. All instrument and pad counts were correct x2. RADHA / DELFIN /[id number] DOMINIK
[2019-09-19] MEDS: Ibuprofen 800 MG Tab PO PRN (16:13)
[2019-09-20] MEDS: Ibuprofen 800 MG Tab PO PRN (04:28)
--- NOTE | 2019-09-20 07:22 | PCM48HPAN ---
Post Anesthesia Note - EVALUATION WITHIN 48HRS OF ANESTHETIC Vital Signs in Normal Range: Yes Patient Participated in Evaluation: Yes Respiratory Function Stable: Yes Airway Patent: Yes Cardiovascular Function Stable: Yes Hydration Status Stable: Yes Pain Control Satisfactory: Yes Nausea and Vomiting Control Satisfactory: Yes Mental Status Recovered: Yes Vital Signs: Last Vital Signs Temp 36.6 C 09/20/19 04:00 Pulse 59 L 09/20/19 04:00 Resp 16 09/20/19 04:00 BP 103/55 L 09/20/19 04:00 Pulse Ox 95 09/20/19 04:00
--- NOTE | 2019-09-20 07:22 | PCM.POSTAN ---
POST ANESTHESIA ASSESSMENT - MENTAL STATUS Mental Status: Alert, Oriented - VITAL SIGNS Vital Signs: Last Vital Signs Temp 36.6 C 09/20/19 04:00 Pulse 59 L 09/20/19 04:00 Resp 16 09/20/19 04:00 BP 103/55 L 09/20/19 04:00 Pulse Ox 95 09/20/19 04:00 - RESPIRATORY Respiratory Status: Respiratory Rate WNL - CARDIOVASCULAR CV Status: Pulse Rate WNL - GASTROINTESTINAL GI Status: No Symptoms - POST OP HYDRATION Hydration Status: Adequate & Stable
[2019-09-20 08:46] VITALS: BP 95/53; PULSE 64
--- NOTE | 2019-09-20 09:28 | PCM.PNPP ---
- General Info Date of Service: 09/20/19 Subjective Update: 34yo P5 PPD1 denies any complains Normal lochia Functional Status: Reports: Pain Controlled, Tolerating Diet, Ambulating, Urinating - Review of Systems General: Reports: No Symptoms HEENT: Reports: No Symptoms Pulmonary: Reports: No Symptoms Cardiovascular: Reports: No Symptoms Gastrointestinal: Reports: No Symptoms Genitourinary: Reports: No Symptoms Musculoskeletal: Reports: No Symptoms Skin: Reports: No Symptoms Neurological: Reports: No Symptoms Psychiatric: Reports: No Symptoms - General Info Date of Service: 09/20/19 - Patient Data Vital Signs - Most Recent: Last Vital Signs Temp 36.2 C 09/20/19 08:00 Pulse 64 09/20/19 08:00 Resp 16 09/20/19 08:00 BP 95/53 L 09/20/19 08:00 Pulse Ox 96 09/20/19 08:00 Weight - Most Recent: 73.936 kg Lab Results - Last 24 Hours: Laboratory Results - last 24 hr 09/20/19 Range/Units 05:35 Hgb 12.0 (12.0-16.0) g/dL Hct 36.5 (36.0-46.0) % Med Orders - Current: Current Medications Acetaminophen (Tylenol Extra Strength) 500 mg PO Q4H PRN PRN Reason: Pain Acetaminophen (Tylenol Extra Strength) 1,000 mg PO Q4H PRN PRN Reason: Pain Benzocaine/Menthol (Dermoplast Pain Relief 20%-0.5% [place]) 78 gm TOP ASDIRECTED PRN PRN Reason: Perineal Comfort Measure Bisacodyl (Dulcolax) 10 mg RECTAL ONETIME PRN PRN Reason: Constipation Butorphanol Tartrate (Stadol) 1 mg IVPUSH Q1H PRN PRN Reason: Pain Carboprost Tromethamine (Hemabate Ds) 250 mcg IM ASDIRECTED PRN PRN Reason: Post Hemorrhage Docusate Sodium (Colace) 100 mg PO BID PRN PRN Reason: Constipation Emollient Ointment (Lansinoh Hpa) 0 gm TOP ASDIRECTED PRN PRN Reason: Sore Nipples Lactated Ringer's (Ringers, Lactated) 1,000 mls @ 150 mls/hr IV ASDIRECTED ROMAN Last Admin: 09/19/19 07:43 Dose: 999 mls/hr Oxytocin/Sodium Chloride (Oxytocin 30 Unit/500 Ml-Ns) 30 unit in 500 mls @ 500 mls/hr IV TITRATE ROMAN Oxytocin/Sodium Chloride (Oxytocin 30 Unit/500 Ml-Ns) 30 unit in 500 mls @ 2 mls/hr IV TITRATE ROMAN; Protocol Last Titration: 09/19/19 04:15 Dose: 12 munits/min, 12 mls/hr Tranexamic Acid 1,000 mg/ (Sodium Chloride) 110 mls @ 660 mls/hr IV ONETIME PRN PRN Reason: Bleeding Ibuprofen (Motrin) 400 mg PO Q4H PRN PRN Reason: Pain Ibuprofen (Motrin) 800 mg PO Q6H PRN PRN Reason: Pain Last Admin: 09/20/19 04:28 Dose: 800 mg Lidocaine HCl (Xylocaine 1%) 50 ml INJECT ONETIME PRN PRN Reason: Laceration repair Methylergonovine Maleate (Methergine) 0.2 mg IM ASDIRECTED PRN PRN Reason: Post Hemorrhage Misoprostol (Cytotec) 200 mcg PO ONETIME PRN PRN Reason: Post Hemorrhage Misoprostol (Cytotec) 25 mcg VAG ONETIME PRN PRN Reason: Cervical Ripening Misoprostol (Cytotec) 25 mcg VAG Q4H PRN PRN Reason: Cervical Ripening Nalbuphine HCl (Nubain) 10 mg IVPUSH Q1H PRN PRN Reason: Pain (severe 7-10) Ondansetron HCl (Zofran) 4 mg IVPUSH Q6H PRN PRN Reason: Nausea/Vomiting Sodium Chloride (Saline Flush) 10 ml FLUSH ASDIRECTED PRN PRN Reason: Keep Vein Open Sodium Chloride (Saline Flush) 2.5 ml FLUSH ASDIRECTED PRN PRN Reason: Keep Vein Open Sodium Chloride (Normal Saline) 10 ml IV ASDIRECTED PRN PRN Reason: IV Use Sterile Water (Sterile Water For Irrigation) 1,000 ml IRR ASDIRECTED PRN PRN Reason: delivery Last Admin: 09/19/19 08:02 Dose: 1,000 ml Terbutaline Sulfate (Brethine) 0.25 mg SUBCUT ASDIRECTED PRN PRN Reason: Tacysystole Witch Eunice (Tucks) 1 pad TOP ASDIRECTED PRN PRN Reason: comfort care Discontinued Medications Fentanyl (Sublimaze) Confirm Administered Dose 100 mcg .ROUTE .STK-MED ONE Stop: 09/19/19 03:11 Last Admin: 09/19/19 07:40 Dose: Not Given Ampicillin Sodium 2 gm/ Sodium (Chloride) 100 mls @ 200 mls/hr IV ONETIME ONE Stop: 09/18/19 23:55 Last Infusion: 09/19/19 01:00 Dose: Infused Ampicillin Sodium 1 gm/ Sodium (Chloride) 50 mls @ 100 mls/hr IV Q4H ROMAN Last Admin: 09/19/19 09:05 Dose: Not Given Ropivacaine (Naropin 0.2%) Confirm Administered Dose 100 mls @ as directed .ROUTE .STK-MED ONE Stop: 09/19/19 03:11 Last Admin: 09/19/19 07:39 Dose: Not Given - Interaction Support Person: - Recovery Exam Fundal Tone: Firm Fundal Level: 1 Fingerbreadths Below Umbilicus Fundal Placement: Midline Lochia Amount: Small Lochia Color: Rubra/Red Perineum Description: Intact, Minimal Bruising/Swelling Episiotomy/Laceration: None Bladder Status: Voiding Urinary Elimination: Voided - Exam General: Alert HEENT: Pupils Equal Neck: Supple Lungs: Clear to Auscultation Cardiovascular: Regular Rate, Regular Rhythm GI/Abdominal Exam: Normal Bowel Sounds Extremities: Normal Inspection Wound/Incisions: Healing Well Neurological: No New Focal Deficit Psy/Mental Status: Alert - Problem List & Annotations (1) Vaginal delivery SNOMED Code(s): 607219087 Code(s): O80 - ENCOUNTER FOR FULL-TERM UNCOMPLICATED DELIVERY Status: Acute Current Visit: No - Problem List Review Problem List Initiated/Reviewed/Updated: Yes - My Orders Last 24 Hours: My Active Orders 09/19/19 08:36 Acetaminophen [Tylenol Extra Strength] 1,000 mg PO Q4H PRN Acetaminophen [Tylenol Extra Strength] 500 mg PO Q4H PRN Benzocaine/Menthol [Dermoplast Pain Relief 20%-0.5% [place]] 78 gm TOP ASDIRECTED PRN Bisacodyl [Dulcolax] 10 mg RECTAL ONETIME PRN Docusate Sodium [Colace] 100 mg PO BID PRN Ibuprofen [Motrin] 400 mg PO Q4H PRN Ibuprofen [Motrin] 800 mg PO Q6H PRN Lanolin [Lansinoh HPA] See Dose Instructions TOP ASDIRECTED PRN Thea Dawson [Tucks] 1 pad TOP ASDIRECTED PRN Resuscitation Status Routine 09/19/19 08:37 Patient Status [ADT] Routine Up ad Elaine [RC] ASDIRECTED Vital Signs [RC] PER UNIT ROUTINE Assess Lochia [WOMSER] Per Unit Routine Assess Uterine Involution [WOMSER] Per Unit Routine Peripheral IV Discontinue [OM.PC] Routine - Assessment Assessment:: 34 yo P5 PPD1 , normal lochia , - Plan Plan:: Discharge home
== END 2019-09-20 11:48 | disposition home or self-care (01) | DRG 807 ==
LOC: MW.OBCHECK 23:22 → MW.OB 23:25 → OBSVTOIN 09-19 08:11 → MW.OB 09-19 12:06
PROVIDERS: ADMIT Obstetrics & Gynecology; ATTEND Obstetrics & Gynecology
PROC: 10E0XZZ Delivery of Products of Conception, External Approach (ICD-10-PCS; principal; 2019-09-19)
PROC: 10907ZC Drainage of Amniotic Fluid, Therapeutic from Products of Conception, Via Natural or Artificial Opening (ICD-10-PCS; 2019-09-19)
PROC: 3E033VJ Introduction of Other Hormone into Peripheral Vein, Percutaneous Approach (ICD-10-PCS; 2019-09-19)
DX: O99.824 Streptococcus B carrier state complicating childbirth (principal); Z37.0 Single live birth; O69.81X0 Labor and delivery complicated by cord around neck, without compression, not applicable or unspecified; Z3A.39 39 weeks gestation of pregnancy; Z88.8 Allergy status to other drugs, medicaments and biological substances; Z88.6 Allergy status to analgesic agent; Z87.891 Personal history of nicotine dependence
CPT/HCPCS: 01967; 36415; 51702; 59025; 59409; 85014; 85018; 85027; 86593; 86850; 86900; 86901; A9270-GY; J0290; J2590; J7030; J7050; J7120

== ENCOUNTER 2022-09-06 09:58 | Emergency (ER) | payer OTHER ==
[2022-09-06] MEDS ORDERED: Ketorolac 30 MG/ML SDV IVPUSH ONE (10:32)
[2022-09-06] MEDS ORDERED: Sodium Chloride 0.9% 1,000 ML IV ONE (10:32)
[2022-09-06 11:37] LABS: CARBON DIOXIDE,CO2 27.3 mmol/L (21.0-32.0); POTASSIUM,K 3.6 mmol/L (3.5-5.1)
[2022-09-06 12:50] LABS: C. TRACHOMATIS BY PCR NOT DETECTED; N. GONORRHOEAE BY PCR NOT DETECTED
[2022-09-06] MEDS ORDERED: cefTRIAXone 1 GM in Sodium Chloride 0.9% 50 ML IV ONE (13:29)
[2022-09-06] MEDS ORDERED: Iopamidol 755 Mg/ML 100 ML Bottle IVPUSH ONE (14:31)
[2022-09-06 18:15] VITALS: BP 108/64; PULSE 59
== END 2022-09-06 18:20 | disposition home or self-care (01) ==
LOC: MW.ED 09:58
DX: R10.2 Pelvic and perineal pain (principal); Z88.5 Allergy status to narcotic agent; Z88.8 Allergy status to other drugs, medicaments and biological substances; Z91.048 Other nonmedicinal substance allergy status
CPT/HCPCS: 36415; 74177; 76705; 76856; 80053; 81003; 81025; 84702; 85025; 87480; 87491; 87510; 87591; 87660; 96361; 96374; 99284; J1885; J7030; Q9967